=== PATIENT | female | born 1940 | race Caucasian/White ===

== ENCOUNTER 2017-04-01 06:05 | Emergency (ER) | payer MEDICARE, OTHER ==
--- NOTE | 2017-04-06 07:24 | ER ---
ADMIT: 04/01/2017 RM/LOC: ER [facility] MR#: [id number] [facility] [address] [place] [id number] AJ BANKS [address] [place] [id number] Emergency Room Report SEX: F AGE: 76 : 1940 DATE: 04/01/2017 ADDENDUM: The patient was originally seen by Dr. Sawant and checked out to me with results of labs and x-ray pending. She does have a history of paroxysmal AFib, and has been in AFib or at least felt like she has been in AFib since last night. She did try taking her flecainide with no relief. She was in AFib when she presented here with rates in the 90s. She was given some diltiazem IV and her rates have pretty much in the 70s and 80s, but she is still in AFib. I discussed the case with Dr. Salazar whom she has seen in the past for this. He recommends starting her on flecainide 50 mg b.i.d., continuing her diltiazem, Pradaxa, and aspirin and follow up next week as scheduled with the Cardiology clinic. Casa Hope MD/ dorota JOB #: [id number] CC: Chino Sawant MD, Attending Physician Hernesto Mccracken MD, Family Physician
== END 2017-04-01 08:06 | disposition home or self-care (01) ==
LOC: ER 06:05
DX: I48.91 Unspecified atrial fibrillation (principal); Z98.890 Other specified postprocedural states; Z90.89 Acquired absence of other organs; Z79.82 Long term (current) use of aspirin; Z79.01 Long term (current) use of anticoagulants; Z79.899 Other long term (current) drug therapy